=== PATIENT | female | born 1980 | race Caucasian/White ===

== ENCOUNTER 2023-03-18 21:51 | Emergency (ER) | payer SELFPAY ==
[~2023-03-18] VITALS: Ht 157.4 cm; Wt 80.0 kg
[2023-03-18] MEDS ORDERED: PREDNISONE20 M1 PO (22:47)
[2023-03-18] MEDS ORDERED: VIBRAMYCIN100 MG PO (22:47)
[2023-03-18] MEDS ORDERED: Bactroban Oint22 GM T (22:47)
== END 2023-03-18 23:00 | disposition home or self-care (01) ==
LOC: ED 21:51
DX: L25.9 Unspecified contact dermatitis, unspecified cause (principal); L03.116 Cellulitis of left lower limb; L03.115 Cellulitis of right lower limb; Z87.891 Personal history of nicotine dependence

== ENCOUNTER 2024-11-20 00:41 | Emergency (ER) | payer BC ==
[~2024-11-20] VITALS: Ht 154.9 cm; Wt 74.8 kg
[~2024-11-20 00:41] MED LIST: Bactroban Oint22 GM T; PREDNISONE20 M1 PO; VIBRAMYCIN100 MG PO
[2024-11-20] MEDS ORDERED: ELIQUIS5 M1 PO (00:55)
[2024-11-20] MEDS ORDERED: Acetaminophen/Hydrocodone 5 MG/325 MG TABLET PO ONE (01:25)
[2024-11-20 01:51] LABS: BASO # 0.1 10*3/uL (0.0-0.1); BASO % 0.8 % (0.0-1.0); EOS # 0.4 10*3/uL (0.0-0.4); EOS % 3.7 % (1.0-4.0); HEMATOCRIT 40.7 % (37.0-47.0); MEAN CELL VOLUME 93.6 fl (81.0-99.0); MEAN CORPUSCULAR HGB 30.3 pg (27.0-31.0); MEAN CORPUSCULAR HGB CONC 32.4 g/dl (33.0-37.0); MEAN PLATELET VOLUME 9.4 fl (9.6-12.3); MONO # 0.9 10*3/uL (0.1-1.0); MONO % 9.1 % (3.0-9.0); NEUT # 4.9 10*3/uL (2.3-7.9); NEUT % 49.7 % (47.0-73.0); PLATELET COUNT AUTOMATED 282 10*3/uL (130-400); RED BLOOD COUNT 4.35 10*6/uL (4.10-5.10); RED CELL DISTRI WIDTH 13.2 % (0-14.5)
[2024-11-20 02:12] LABS: BUN 13 mg/dl (9-23); CHLORIDE 102 mmol/L (98-107); POTASSIUM 3.8 mmol/L (3.4-5.1); URIC ACID 4.5 mg/dL (3.1-7.8)
[2024-11-20] MEDS ORDERED: VIBRAMYCIN100 MG PO (03:17)
[2024-11-20] MEDS ORDERED: CEPHALEXIN500 M1 PO (03:17)
[2024-11-20] MEDS ORDERED: Bactroban Oint22 GM T (03:17)
[2024-11-20] MEDS ORDERED: HYDROCODONE-AC1 EAC1 PO (03:17)
== END 2024-11-20 03:50 | disposition home or self-care (01) ==
LOC: ED 00:41
PROVIDERS: Emergency Medicine
DX: L01.00 Impetigo, unspecified (principal); L03.116 Cellulitis of left lower limb; F17.200 Nicotine dependence, unspecified, uncomplicated; Z86.718 Personal history of other venous thrombosis and embolism; Z79.2 Long term (current) use of antibiotics; Z79.899 Other long term (current) drug therapy

== ENCOUNTER 2025-05-05 15:36 | Emergency (ER) | payer BC ==
[~2025-05-05] VITALS: Wt 74.8 kg
[~2025-05-05 15:36] MED LIST changes: +CEPHALEXIN500 M1 PO; +ELIQUIS5 M1 PO; +HYDROCODONE-AC1 EAC1 PO
[2025-05-05] MEDS ORDERED: Amoxicillin/Clavulanate Pota 875 MG TAB PO ONE (15:55)
[2025-05-05] MEDS ORDERED: Acetaminophen/Oxycodone 5 MG/325 MG TABLET PO ONE (15:55)
[2025-05-05] MEDS ORDERED: AMOX-CLAV 875-1 EACH PO (15:56)
[2025-05-05] MEDS ORDERED: MELOXICAM15 MG PO (15:56)
== END 2025-05-05 16:34 | disposition home or self-care (01) ==
LOC: ED 15:36
DX: K02.9 Dental caries, unspecified (principal); K04.7 Periapical abscess without sinus; F17.290 Nicotine dependence, other tobacco product, uncomplicated; Z79.899 Other long term (current) drug therapy

== ENCOUNTER 2025-09-09 16:30 | Emergency (ER) | payer BC ==
[~2025-09-09] VITALS: Ht 152.4 cm; Wt 74.8 kg
[~2025-09-09 16:30] MED LIST changes: +AMOX-CLAV 875-1 EACH PO; +MELOXICAM15 MG PO
[2025-09-09 17:16] LABS: BASO # 0.1 10*3/uL (0.0-0.1); BASO % 0.7 % (0.0-1.0); EOS # 0.3 10*3/uL (0.0-0.4); EOS % 2.5 % (1.0-4.0); MEAN CELL VOLUME 93.3 fl (81.0-99.0); MEAN CORPUSCULAR HGB 30.2 pg (27.0-31.0); MEAN PLATELET VOLUME 9.6 fl (9.6-12.3); MONO # 1.1 10*3/uL (0.1-1.0); MONO % 10.2 % (3.0-9.0); NEUT # 6.9 10*3/uL (2.3-7.9); NEUT % 62.0 % (47.0-73.0); NUCLEATED RED BLOOD CELL 0.0 % (0.0-0.0); NUCLEATED RED BLOOD CELL 0.0 10*3/uL (0.0-0.0); PLATELET COUNT AUTOMATED 275 10*3/uL (130-400); RED CELL DISTRI WIDTH 12.9 % (0-14.5)
[2025-09-09 18:16] LABS: BUN 10 mg/dl (9-23)
[2025-09-09] MEDS ORDERED: NAPROSYN500 MG PO (18:37)
[2025-09-09] MEDS ORDERED: CLINDAMYCIN HC300 MG PO (18:37)
[2025-09-09] MEDS ORDERED: Acetaminophen/Oxycodone 5 MG/325 MG TABLET PO ONE (18:40)
[2025-09-09] MEDS ORDERED: CLINDAMYCIN HCL 300 MG CAPSULE PO ONE (18:40)
== END 2025-09-09 18:46 | disposition home or self-care (01) ==
LOC: ED 16:30
PROVIDERS: Nurse Practitioner Family
DX: K02.9 Dental caries, unspecified (principal); K08.89 Other specified disorders of teeth and supporting structures; Z79.899 Other long term (current) drug therapy